=== PATIENT | male | born 1940 | race Hispanic/Latino ===

== ENCOUNTER 2021-09-14 17:32 | Emergency (ER) | payer SELFPAY ==
--- NOTE | 2021-09-14 17:55 | Emergency Department Report ---
<CHEYANNE GONSALEZ - Last Filed: 09/14/21 20:49> ED Shortness of Breath HPI - General Chief Complaint: Dyspnea/Respdistress Stated Complaint: SOB Time Seen by Provider: 09/14/21 17:46 Source: patient, EMS Mode of arrival: Stretcher Limitations: Language Barrier - History of Present Illness Initial Comments: 81 yo M with h/o schizophrenia and lung resection brought in by EMS with shortness of breath that started 3 to 4 days progressively getting worse. According to EMS patient and his brother while visiting [place] before symptoms started. Patient is unsure why his lung was resected. No fever or chills reported. Patient is headaches smoker. EMS reported that patient O2 sat while low 70s when he was picked up from the hotel. He was started on 4 L of O2 supplement with improvement to 93%. No other modifying or associated factors reported. - Related Data Home Medications Medication Instructions Recorded Confirmed Last Taken Citalopram [celeXA] 20 mg PO QDAY 09/14/21 09/14/21 09/13/21 OLANZapine [Olanzapine] 10 mg PO 09/14/21 09/13/21 hydrOXYzine PAMOATE [Vistaril] 25 mg PO Q6HR PRN 09/14/21 09/14/21 09/13/21 risperiDONE [RisperDAL] 1 mg PO 09/14/21 09/13/21 Allergies Allergy/AdvReac Type Severity Reaction Status Date / Time No Known Allergies Allergy Verified 09/14/21 17:34 ED Review of Systems Comment: All other systems reviewed and negative Respiratory: cough, shortness of breath, SOB with exertion, SOB at rest Cardiovascular: denies: chest pain, palpitations ED Past Medical Hx - Past Medical History Additional medical history: schizoprenia - Surgical History Past Surgical History?: Yes Additional Surgical History: Lung surgery? - Medications Home Medications: Home Medications Medication Instructions Recorded Confirmed Last Taken Type Citalopram [celeXA] 20 mg PO QDAY 09/14/21 09/14/21 09/13/21 History OLANZapine [Olanzapine] 10 mg PO 09/14/21 09/13/21 History hydrOXYzine PAMOATE [Vistaril] 25 mg PO Q6HR PRN 09/14/21 09/14/21 09/13/21 History risperiDONE [RisperDAL] 1 mg PO 09/14/21 09/13/21 History ED Physical Exam - General Limitations: Language Barrier General appearance: alert, in distress (Due to shortness of breath) - Head Head exam: Present: normal inspection - Eye Eye exam: Present: normal appearance Pupils: Present: normal accommodation - ENT ENT exam: Present: normal exam, normal orophraynx, mucous membranes moist - Neck Neck exam: Present: normal inspection, full ROM - Respiratory Respiratory exam: Present: other (Wet lungs) - Cardiovascular Cardiovascular Exam: Present: regular rate, normal rhythm, normal heart sounds - GI/Abdominal GI/Abdominal exam: Present: soft, normal bowel sounds. Absent: distended, tenderness - Extremities Exam Extremities exam: Present: normal inspection, normal capillary refill. Absent: tenderness, pedal edema - Back Exam Back exam: Absent: tenderness - Neurological Exam Neurological exam: Present: alert, oriented X3 - Psychiatric Psychiatric exam: Present: normal mood - Skin Skin exam: Present: warm, dry, normal color ED Course - Reevaluation(s) Reevaluation #1: 09/14/21 17:52 here with sob x the last 3-4 days-- noted with low O2 sat by EMS at 72% with improvement to 93% with 4 L supplement-- symptoms could be as result of 1--Pneumonia 2--PE 3--Vascular congestion/Pulmonary edema 4--CHF 5--COPD exacerbation 6--mild cardiac infarction 7--pneumothorax 8--pericarditis/pericardial effusion To rule out the above so we will go ahead and order chest x-ray, D-dimer, troponin, BNP, and EKG. We also check routine labs including CBC, CMP or UA for any other infectious process. Reevaluation #2: 09/14/21 19:10 CT scan of the chest she also groundglass opacity consistent with interstitial lung disease with bronchiectasis suspicious of infection or inflammatory disease that is likely chronic--ABG is ordered and pending at this point. Reevaluation #3: 09/14/21 20:41 Noted with elevated D-dimer at 878.68 couple with been tachycardic which is suspicious and concerning for pulmonary embolism considering that the patient came in with hypoxia--we will go ahead and order CT angio chest for further evaluation and treatment. Patient also noted with elevated BNP at 6840 and with troponin at 0.045-- this could be as result of PE with right sided heart strain-- will continue to monitor this patient progress. He is needing 10L oxygen supplement at this time to keep his saturation about 95%. 09/14/21 20:49 Pt signed out to Dr Ba while waiting for the above imaging for continuation of this patient care. ED Medical Decision Making - Lab Data Result diagrams: 09/14/21 18:38 09/14/21 18:38 Critical Care Time: Yes (120 minutes ) Critical care time in (mins) excluding proc time.: 120 Critical care attestation.: see progress noted for details Critical Care Time: 120 ED Disposition Clinical Impression: Acute respiratory failure with hypoxia, Suspected 2019-nCoV infection, Pulmonary infiltrate, SIRS (systemic inflammatory response syndrome) Disposition: ADMITTED INPATIENT Does the pt Need Aspirin: No Condition: Serious <DESMOND BA - Last Filed: 09/14/21 22:10> ED Review of Systems ROS: Stated complaint: SOB Other details as noted in HPI ED Course Vital Signs 09/14/21 09/14/21 09/14/21 17:34 17:54 18:00 Temperature 97.6 F Pulse Rate 130 H 124 H 120 H Respiratory 36 H 36 H Rate Blood Pressure 115/61 Blood Pressure 104/68 [Left] O2 Sat by Pulse 93 95 100 Oximetry 09/14/21 09/14/21 09/14/21 18:25 18:30 18:46 Temperature Pulse Rate 121 H 120 H Respiratory 42 H 30 H Rate Blood Pressure 115/61 124/58 114/71 Blood Pressure [Left] O2 Sat by Pulse 100 98 99 Oximetry 09/14/21 21:35 Temperature Pulse Rate Respiratory Rate Blood Pressure Blood Pressure [Left] O2 Sat by Pulse 98 Oximetry - Reevaluation(s) Reevaluation #4: 09/14/21 22:08 CTA chest shows no pulmonary embolism. Respiratory therapist has switched patient over to 5 L nasal cannula. CTA chest suggest pulmonary infiltrates and effusions. Appreciate that patient is ruling in for systemic inflammatory response syndrome, but does have some evidence of fluid overload, so we will administer Lasix, and withhold 30 cc/kg bolus of IV fluids. Start ceftriaxone, azithromycin, empiric steroids, place patient on isolation, obtain COVID swab. Patient appears awake, alert, and is not encephalopathic. Hospital physician, Dr. Estrada to admit to IMS Suspect that mildly elevated troponin is likely secondary to type II troponin leak ED Medical Decision Making - Lab Data Result diagrams: 09/14/21 18:38 09/14/21 18:38 Vital Signs 09/14/21 09/14/21 09/14/21 17:34 17:54 18:00 Temperature 97.6 F Pulse Rate 130 H 124 H 120 H Respiratory 36 H 36 H Rate Blood Pressure 115/61 Blood Pressure 104/68 [Left] O2 Sat by Pulse 93 95 100 Oximetry 09/14/21 09/14/21 09/14/21 18:25 18:30 18:46 Temperature Pulse Rate 121 H 120 H Respiratory 42 H 30 H Rate Blood Pressure 115/61 124/58 114/71 Blood Pressure [Left] O2 Sat by Pulse 100 98 99 Oximetry 09/14/21 21:35 Temperature Pulse Rate Respiratory Rate Blood Pressure Blood Pressure [Left] O2 Sat by Pulse 98 Oximetry Lab Results 09/14/21 09/14/21 09/14/21 Range/Units 18:38 18:38 18:38 WBC 12.8 H (4.5-11.0) K/mm3 RBC 4.37 (3.65-5.03) M/mm3 Hgb 11.4 L (11.8-15.2) gm/dl Hct 35.5 (35.5-45.6) % MCV 81 L (84-94) fl MCH 26 L (28-32) pg MCHC 32 (32-34) % RDW 14.4 (13.2-15.2) % Plt Count 425 (140-440) K/mm3 Lymph % (Auto) 2.5 L (13.4-35.0) % [place] % (Auto) 10.3 H (0.0-7.3) % Eos % (Auto) 0.2 (0.0-4.3) % Baso % (Auto) 0.2 (0.0-1.8) % Lymph # (Auto) 0.3 L (1.2-5.4) K/mm3 [place] # (Auto) 1.3 H (0.0-0.8) K/mm3 Eos # (Auto) 0.0 (0.0-0.4) K/mm3 Baso # (Auto) 0.0 (0.0-0.1) K/mm3 Seg Neutrophils % 86.8 H (40.0-70.0) % Seg Neutrophils # 11.1 H (1.8-7.7) K/mm3 PT (12.2-14.9) Sec. INR (0.87-1.13) APTT (24.2-36.6) Sec. D-Dimer (0-234) ng/mlDDU Sodium 140 (137-145) mmol/L Potassium 5.0 (3.6-5.0) mmol/L Chloride 102.1 (98-107) mmol/L Carbon Dioxide 24 (22-30) mmol/L Anion Gap 19 mmol/L BUN 18 (9-20) mg/dL Creatinine 1.0 (0.8-1.3) mg/dL Estimated GFR > 60 ml/min BUN/Creatinine Ratio 18 % Glucose 115 H (75-100) mg/dL Lactic Acid (0.7-2.0) mmol/L Calcium 8.2 L (8.4-10.2) mg/dL Total Bilirubin 0.40 (0.1-1.2) mg/dL AST 36 (5-40) units/L ALT 40 (7-56) units/L Alkaline Phosphatase 103 (35-129) units/L Troponin T 0.045 H (0.00-0.029) ng/mL NT-Pro-B Natriuret Pep 6840 H (0-900) pg/mL Total Protein 5.9 L (6.3-8.2) g/dL Albumin 2.9 L (3.9-5) g/dL Albumin/Globulin Ratio 1.0 % Triglycerides 77 (2-149) mg/dL Cholesterol 136 (50-199) mg/dL LDL Cholesterol Direct 83 (50-130) mg/dL HDL Cholesterol 39 L (40-59) mg/dL Cholesterol/HDL Ratio 3.48 % TSH 2.320 (0.270-4.200) mlU/mL 09/14/21 09/14/21 Range/Units 18:38 21:25 WBC (4.5-11.0) K/mm3 RBC (3.65-5.03) M/mm3 Hgb (11.8-15.2) gm/dl Hct (35.5-45.6) % MCV (84-94) fl MCH (28-32) pg MCHC (32-34) % RDW (13.2-15.2) % Plt Count (140-440) K/mm3 Lymph % (Auto) (13.4-35.0) % [place] % (Auto) (0.0-7.3) % Eos % (Auto) (0.0-4.3) % Baso % (Auto) (0.0-1.8) % Lymph # (Auto) (1.2-5.4) K/mm3 [place] # (Auto) (0.0-0.8) K/mm3 Eos # (Auto) (0.0-0.4) K/mm3 Baso # (Auto) (0.0-0.1) K/mm3 Seg Neutrophils % (40.0-70.0) % Seg Neutrophils # (1.8-7.7) K/mm3 PT 15.2 H (12.2-14.9) Sec. INR 1.08 (0.87-1.13) APTT 31.5 (24.2-36.6) Sec. D-Dimer 876.68 H (0-234) ng/mlDDU Sodium (137-145) mmol/L Potassium (3.6-5.0) mmol/L Chloride (98-107) mmol/L Carbon Dioxide (22-30) mmol/L Anion Gap mmol/L BUN (9-20) mg/dL Creatinine (0.8-1.3) mg/dL Estimated GFR ml/min BUN/Creatinine Ratio % Glucose (75-100) mg/dL Lactic Acid 1.30 (0.7-2.0) mmol/L Calcium (8.4-10.2) mg/dL Total Bilirubin (0.1-1.2) mg/dL AST (5-40) units/L ALT (7-56) units/L Alkaline Phosphatase (35-129) units/L Troponin T (0.00-0.029) ng/mL NT-Pro-B Natriuret Pep (0-900) pg/mL Total Protein (6.3-8.2) g/dL Albumin (3.9-5) g/dL Albumin/Globulin Ratio % Triglycerides (2-149) mg/dL Cholesterol (50-199) mg/dL LDL Cholesterol Direct (50-130) mg/dL HDL Cholesterol (40-59) mg/dL Cholesterol/HDL Ratio % TSH (0.270-4.200) mlU/mL - EKG Data -: EKG Interpreted by Vt EKG shows normal: sinus rhythm Rate: tachycardia - EKG Data 09/14/21 22:08 The EKG is interpreted by myself at 22: 08 Sinus rhythm, tachycardia, rate 123 bpm. Normal axis, normal P wave axis, multiple PVCs, poor R wave progression, QTC 4 5 8 ms. Abnormal EKG. Not a STEMI - Radiology Data Radiology results: pending, report reviewed, image reviewed CTA CHEST WITH CONTRAST INDICATION / CLINICAL INFORMATION: sob with elevated d- dimer and tachycardia. TECHNIQUE: Axial CT images were obtained through the chest after injection of IV contrast. 3 plane MIP and/or 3D reconstructions were produced. All CT scans at this location are performed using CT dose reduction for ALARA by means of automated exposure control. COMPARISON: None available. FINDINGS: There is extensive pulmonary opacities within bilateral lungs which limits evaluation. The central pulmonary arteries are patent without filling defect. The visualized portions of the segmental peripheral pulmonary arteries appear patent where visualized. There are bilateral pleural effusions. Groundglass opacities with diffuse infiltrates and densities in bilateral lungs. A few nodular densities are also seen. Small nodular density in the right lower lung measures 4 mm. Additional nodular densities are also seen. Calcified paratracheal hilar and periaortic nodes. Heart and aorta appear normal. IMPRESSION: 1. No central PTE is identified. Visualized segmental peripheral pulmonary arteries appear patent however examination is significantly limited due to amount of infiltrates in lung parenchymal changes bilaterally 2. Diffuse bilateral pulmonary opacities with groundglass densities and interstitial infiltrates. Several nodular opacities are also seen in bilateral lungs. Follow- up CT after treatment to exclude underlying pulmonary nodule. 3. Bilateral moderate to large effusions. 4. Enlarged calcified hilar and paratracheal nodes. Signer Name: Jose A Rob MD Signed: 09/14/2021 9:00 PM Workstation Name: [id number] CT chest wo con HISTORY: sob COMPARISON: None TECHNIQUE: Chest CT exam. All CT scans at this location are performed using CT dose reduction for ALARA by means of automated exposure control. FINDINGS: CT CHEST: Lungs: Large pleural effusions. There are bilateral groundglass opacities involving all lobes of lung. There appears to be an upper lobe predilection. No significant peribronchial thickening. There is no significant interlobular septal thickening.No honey combing. The upper lobe predominance can be seen with inflammation; however, there is no nodularity to suggest metabolic disease. Trachea and Bronchi: Mild bronchiectasis Mediastinum/Lymph nodes: Numerous calcified lymph nodes sequela of granulomatous disease. No lymphadenopathy. Heart: No significant abnormality. Vasculature: No significant abnormality. Osseous Structures: No aggressive appearing osseous lesions. Additional Findings: None IMPRESSION: 1. There is diffuse bilateral ground glass opacities with large bilateral pleural effusions. The airspace disease is not typical for alveolar edema. Findings could be related to infection or inflammation but given the bronchiectasis findings could be chronic and related to interstitial lung disease. Signer Name: Jerry Ruiz MD Signed: 09/14/2021 6:01 PM Workstation Name: [id number] Critical care attestation.: If time is entered above; I have spent that time in minutes in the direct care of this critically ill patient, excluding procedure time. ED Disposition Is pt being admited?: Yes Does the pt Need Aspirin: No
[2021-09-14] MEDS ORDERED: MORPHINE 2 MG/1 ML INJ IV ONE (17:58)
[2021-09-14 19:02] LABS: Basophils % (Auto) 0.2 % (0.0-1.8); Eosinophils % (Auto) 0.2 % (0.0-4.3); Hematocrit 35.5 % (35.5-45.6); Hemoglobin 11.4 gm/dl (11.8-15.2); Lymphocytes # (Auto) 0.3 K/mm3 (1.2-5.4); Lymphocytes % (Auto) 2.5 % (13.4-35.0); Mean Corpuscular HGB Conc 32 % (32-34); Mean Corpuscular Volume 81 fl (84-94); Monocytes # (Auto) 1.3 K/mm3 (0.0-0.8); Monocytes % (Auto) 10.3 % (0.0-7.3); Platelet Count 425 K/mm3 (140-440); Red Blood Count 4.37 M/mm3 (3.65-5.03); Red Cell Distribution Width 14.4 % (13.2-15.2)
--- NOTE | 2021-09-14 19:06 | Cat Scan Report ---
CT chest wo con HISTORY: sob COMPARISON: None TECHNIQUE: Chest CT exam. All CT scans at this location are performed using CT dose reduction for ALA RA by means of automated exposure control. FINDINGS: CT CHEST: Lungs: Large pleural effusions. There are bilateral groundglass opacities involving all lobes of lung . There appears to be an upper lobe predilection. No significant peribronchial thickening. There is n o significant interlobular septal thickening.No honey combing. The upper lobe predominance can be see n with inflammation; however, there is no nodularity to suggest metabolic disease. Trachea and Bronchi: Mild bronchiectasis Mediastinum/Lymph nodes: Numerous calcified lymph nodes sequela of granulomatous disease. No lymphade nopathy. Heart: No significant abnormality. Vasculature: No significant abnormality. Osseous Structures: No aggressive appearing osseous lesions. Additional Findings: None IMPRESSION: 1. There is diffuse bilateral ground glass opacities with large bilateral pleural effusions. The airs pace disease is not typical for alveolar edema. Findings could be related to infection or inflammatio n but given the bronchiectasis findings could be chronic and related to interstitial lung disease. Signer Name: Jerry Ruiz MD Signed: 09/14/2021 7:01 PM Workstation Name: [id number]
[2021-09-14 19:12] LABS: INR 1.08 (0.87-1.13)
[2021-09-14 19:13] LABS: Partial Thromboplastin Time 31.5 Sec. (24.2-36.6)
[2021-09-14 19:27] LABS: Alanine Aminotransferase 40 units/L (7-56); Albumin 2.9 g/dL (3.9-5); BUN/Creatinine Ratio 18; Blood Urea Nitrogen 18 mg/dL (9-20); Calcium 8.2 mg/dL (8.4-10.2); Hemolysis Index 0
[2021-09-14 19:53] LABS: Chol/HDL Ratio 3.48 %; HDL Cholesterol 39 mg/dL (40-59); LDL Cholesterol,Direct 83 mg/dL (50-130)
[2021-09-14] MEDS ORDERED: ENOXAPARIN 100 MG/1 ML INJ SUB-Q ONE (20:46)
[2021-09-14] MEDS ORDERED: AZITHROMYCIN/NS 500 MG/250 ML 500 MG/250 ML BAG IV ONE (21:05)
[2021-09-14] MEDS ORDERED: dexAMETHasone 4 MG/ML VIAL IV ONE ×2 (21:05→22:08)
[2021-09-14] MEDS ORDERED: cefTRIAXone/NS 1 GM/50 ML 1 GM/50 ML BAG IV ONE (21:05)
[2021-09-14] MEDS ORDERED: FUROSEMIDE 40 MG/4 ML INJ IV ONE (21:05)
[2021-09-14] MEDS ORDERED: LIDOCAINE-MPF (1%) 10 MG/1 ML VIAL 5 ML INFILTRATI ONE (21:05)
--- NOTE | 2021-09-14 22:04 | Cat Scan Report ---
CTA CHEST WITH CONTRAST INDICATION / CLINICAL INFORMATION: sob with elevated d-dimer and tachycardia. TECHNIQUE: Axial CT images were obtained through the chest after injection of IV contrast. 3 plane DC P and/or 3D reconstructions were produced. All CT scans at this location are performed using CT dose reduction for ALARA by means of automated exposure control. COMPARISON: None available. FINDINGS: There is extensive pulmonary opacities within bilateral lungs which limits evaluation. The central pu lmonary arteries are patent without filling defect. The visualized portions of the segmental peripher al pulmonary arteries appear patent where visualized. There are bilateral pleural effusions. Groundgl ass opacities with diffuse infiltrates and densities in bilateral lungs. A few nodular densities are also seen. Small nodular density in the right lower lung measures 4 mm. Additional nodular densities are also seen. Calcified paratracheal hilar and periaortic nodes. Heart and aorta appear normal. IMPRESSION: 1. No central PTE is identified. Visualized segmental peripheral pulmonary arteries appear patent how ever examination is significantly limited due to amount of infiltrates in lung parenchymal changes bi laterally 2. Diffuse bilateral pulmonary opacities with groundglass densities and interstitial infiltrates. Sev eral nodular opacities are also seen in bilateral lungs. Follow-up CT after treatment to exclude unde rlying pulmonary nodule. 3. Bilateral moderate to large effusions. 4. Enlarged calcified hilar and paratracheal nodes. Signer Name: Jose A Rob MD Signed: 09/14/2021 10:00 PM Workstation Name: [id number]
[2021-09-14] MEDS ORDERED: ALBUTEROL 2.5 MG/3 ML NEBU IH PRN (22:23)
[2021-09-14] MEDS ORDERED: ACETAMINOPHEN 325 MG TAB PO PRN (22:23)
[2021-09-14] MEDS ORDERED: HYDROmorphone 1 MG/1 ML INJ IV PRN (22:23)
[2021-09-14] MEDS ORDERED: MORPHINE 2 MG/1 ML INJ IV PRN (22:23)
[2021-09-14] MEDS ORDERED: ONDANSETRON 4 MG/2 ML INJ IV PRN (22:23)
--- NOTE | 2021-09-14 22:38 | History and Physical Report ---
History of Present Illness Date of examination: 09/14/21 Date of admission: 09/14/21 Chief complaint: Dyspnea Respiratory distress History of present illness: 81 yo M with history of schizophrenia and lung resection was brought to the emergency room because of shortness of breath that started 3 to 4 days progressively getting worse. patient and his brother while visiting [place] before symptoms started. Patient is unsure why his lung was resected. No fever or chills reported. Patient is smoker. EMS reported that patient O2 sat while low 70s when he was picked up from the hotel. He was started on 4 L of O2 supplement with improvement to 93%. No other modifying or associated factors reported. In the emergency room Patient also noted with elevated BNP at 6840 and with troponin at 0.045. CT scan of the chest she also groundglass opacity consistent with interstitial lung disease with bronchiectasis suspicious of infection or inflammatory disease that is likely chronic. CTA of the chest shows no PE. Diffuse bilateral pulmonary opacities with groundglass densities and interstitial infiltrates. Bilateral moderate to large effusion. Enlarged ca lcified hilar and paratracheal nodes.'s were going to admit the patient we will put the patient on IV antibiotic neb treatment, consult pulmonary also put on heart failure pathway. Past History Past Medical History: other (Schizophrenia) Past Surgical History: Other (Lung resection) Social history: smoking Family history: hypertension Medications and Allergies Allergies Allergy/AdvReac Type Severity Reaction Status Date / Time No Known Allergies Allergy Verified 09/14/21 17:34 Home Medications Medication Instructions Recorded Confirmed Last Taken Type Citalopram [celeXA] 20 mg PO QDAY 09/14/21 09/14/21 09/13/21 History OLANZapine [Olanzapine] 10 mg PO 09/14/21 09/13/21 History hydrOXYzine PAMOATE [Vistaril] 25 mg PO Q6HR PRN 09/14/21 09/14/21 09/13/21 History risperiDONE [RisperDAL] 1 mg PO 09/14/21 09/13/21 History Active Meds: Active Medications Acetaminophen (Acetaminophen 325 Mg Tab) 650 mg PO Q4H PRN PRN Reason: Pain MILD(1-3)/Fever >100.5/NOONAN Albuterol (Albuterol 2.5 Mg/3 Ml Nebu) 2.5 mg IH Q3HRT PRN PRN Reason: Shortness Of Breath Albuterol/Ipratropium (Ipratropium/Albuterol Sulfate 3 Ml Ampul.Neb) 1 ampul IH Q6HRT [facility] Azithromycin (Azithromycin 250 Mg Tab) 500 mg PO QDAY [facility]; Protocol Citalopram Hydrobromide (Citalopram 20 Mg Tab) 20 mg PO QDAY [facility] Famotidine (Famotidine 20 Mg Tab) 20 mg PO BID [facility] Furosemide (Furosemide 40 Mg/4 Ml Inj) 40 mg IV BID@0600,1800 [facility] Heparin Sodium (Porcine) (Heparin 5,000 Unit/1 Ml Vial) 5,000 unit SUB-Q Q12HR [facility] Hydromorphone HCl (Hydromorphone 1 Mg/1 Ml Inj) 0.5 mg IV Q3H PRN PRN Reason: Pain , Severe (7-10) Ceftriaxone Sodium (Rocephin/Ns 2 Gm/100 Ml) 2 gm in 100 mls @ 200 mls/hr IV Q24H REX; Protocol Morphine Sulfate (Morphine 2 Mg/1 Ml Inj) 2 mg IV Q4H PRN PRN Reason: Pain, Moderate (4-6) Olanzapine (Olanzapine 10 Mg Tab) 10 mg PO DAILY [facility] Ondansetron HCl (Ondansetron 4 Mg/2 Ml Inj) 4 mg IV Q8H PRN PRN Reason: Nausea And Vomiting Risperidone (Risperidone 1 Mg Tab) 1 mg PO DAILY [facility] Sodium Chloride (Sodium Chloride 0.9% 10 Ml Flush Syringe) 10 ml IV BID [facility] Sodium Chloride (Sodium Chloride 0.9% 10 Ml Flush Syringe) 10 ml IV PRN PRN PRN Reason: LINE FLUSH Review of Systems All systems: negative Cardiovascular: orthopnea, edema, shortness of breath, dyspnea on exertion Respiratory: shortness of breath, dyspnea on exertion Exam - Constitutional Vitals: Temp Pulse Resp BP Pulse Ox 97.6 F 120 H 30 H 114/71 98 09/14/21 18:00 09/14/21 18:46 09/14/21 18:46 09/14/21 18:46 09/14/21 21:35 General appearance: Present: no acute distress, well-nourished - EENT Eyes: Present: PERRL ENT: hearing intact, clear oral mucosa - Neck Neck: Present: supple, normal ROM - Respiratory Respiratory effort: normal Respiratory: bilateral: diminished - Cardiovascular Heart Sounds: Present: S1 & S2. Absent: rub, click - Extremities Extremities: pulses symmetrical Extremity abnormal: edema Peripheral Pulses: within normal limits - Abdominal General gastrointestinal: Present: soft, non-tender, non-distended, normal bowel sounds Male genitourinary: Present: normal - Integumentary Integumentary: Present: clear, warm, dry - Musculoskeletal Musculoskeletal: gait normal, strength equal bilaterally - Psychiatric Psychiatric: appropriate mood/affect, intact judgment & insight - Neurologic Neurologic: CNII-XII intact, moves all extremities HEART Score - HEART Score Troponin: Troponin T 0.045 ng/mL (0.00-0.029) H 09/14/21 18:38 Results - Labs CBC & Chem 7: 09/14/21 18:38 09/14/21 18:38 Labs: Laboratory Last Values WBC 12.8 K/mm3 (4.5-11.0) H 09/14/21 18:38 RBC 4.37 M/mm3 (3.65-5.03) 09/14/21 18:38 Hgb 11.4 gm/dl (11.8-15.2) L 09/14/21 18:38 Hct 35.5 % (35.5-45.6) 09/14/21 18:38 MCV 81 fl (84-94) L 09/14/21 18:38 MCH 26 pg (28-32) L 09/14/21 18:38 MCHC 32 % (32-34) 09/14/21 18:38 RDW 14.4 % (13.2-15.2) 09/14/21 18:38 Plt Count 425 K/mm3 (140-440) 09/14/21 18:38 Lymph % (Auto) 2.5 % (13.4-35.0) L 09/14/21 18:38 [place] % (Auto) 10.3 % (0.0-7.3) H 09/14/21 18:38 Eos % (Auto) 0.2 % (0.0-4.3) 09/14/21 18:38 Baso % (Auto) 0.2 % (0.0-1.8) 09/14/21 18:38 Lymph # (Auto) 0.3 K/mm3 (1.2-5.4) L 09/14/21 18:38 [place] # (Auto) 1.3 K/mm3 (0.0-0.8) H 09/14/21 18:38 Eos # (Auto) 0.0 K/mm3 (0.0-0.4) 09/14/21 18:38 Baso # (Auto) 0.0 K/mm3 (0.0-0.1) 09/14/21 18:38 Seg Neutrophils % 86.8 % (40.0-70.0) H 09/14/21 18:38 Seg Neutrophils # 11.1 K/mm3 (1.8-7.7) H 09/14/21 18:38 PT 15.2 Sec. (12.2-14.9) H 09/14/21 18:38 INR 1.08 (0.87-1.13) 09/14/21 18:38 APTT 31.5 Sec. (24.2-36.6) 09/14/21 18:38 D-Dimer 876.68 ng/mlDDU (0-234) H 09/14/21 18:38 ABG pH 7.409 (7.320-7.450) 09/14/21 22:02 POC ABG pCO2 34.8 mmHg (32.0-48.0) 09/14/21 22:02 POC ABG pO2 43.7 mmHg (83-108) L 09/14/21 22:02 POC ABG HCO3 21.5 09/14/21 22:02 ABG O2 Saturation 79.8 (0-100) 09/14/21 22:02 POC ABG Base Excess -2.6 09/14/21 22:02 ABG Hemoglobin 10.9 (12.0-17.5) L 09/14/21 22:02 ABG Oxyhemoglobin 78.0 (94-98) L 09/14/21 22:02 ABG Methemoglobin 0.2 (0.0-1.5) 09/14/21 22:02 ABG Sodium Not Reportable 09/14/21 22:02 ABG Potassium Not Reportable 09/14/21 22:02 ABG Chloride Not Reportable 09/14/21 22:02 ABG Glucose Not Reportable 09/14/21 22:02 Carboxyhemoglobin 2.0 (0.5-1.5) H 09/14/21 22:02 FiO2 % 21.0 09/14/21 22:02 Sodium 140 mmol/L (137-145) 09/14/21 18:38 Potassium 5.0 mmol/L (3.6-5.0) 09/14/21 18:38 Chloride 102.1 mmol/L (98-107) 09/14/21 18:38 Carbon Dioxide 24 mmol/L (22-30) 09/14/21 18:38 Anion Gap 19 mmol/L 09/14/21 18:38 BUN 18 mg/dL (9-20) 09/14/21 18:38 Creatinine 1.0 mg/dL (0.8-1.3) 09/14/21 18:38 Estimated GFR > 60 ml/min 09/14/21 18:38 BUN/Creatinine Ratio 18 % 09/14/21 18:38 Glucose 115 mg/dL (75-100) H 09/14/21 18:38 Lactic Acid 1.30 mmol/L (0.7-2.0) 09/14/21 21:25 Calcium 8.2 mg/dL (8.4-10.2) L 09/14/21 18:38 Total Bilirubin 0.40 mg/dL (0.1-1.2) 09/14/21 18:38 AST 36 units/L (5-40) 09/14/21 18:38 ALT 40 units/L (7-56) 09/14/21 18:38 Alkaline Phosphatase 103 units/L (35-129) 09/14/21 18:38 Troponin T 0.045 ng/mL (0.00-0.029) H 09/14/21 18:38 NT-Pro-B Natriuret Pep 6840 pg/mL (0-900) H 09/14/21 18:38 Total Protein 5.9 g/dL (6.3-8.2) L 09/14/21 18:38 Albumin 2.9 g/dL (3.9-5) L 09/14/21 18:38 Albumin/Globulin Ratio 1.0 % 09/14/21 18:38 Triglycerides 77 mg/dL (2-149) 09/14/21 18:38 Cholesterol 136 mg/dL (50-199) 09/14/21 18:38 LDL Cholesterol Direct 83 mg/dL (50-130) 09/14/21 18:38 HDL Cholesterol 39 mg/dL (40-59) L 09/14/21 18:38 Cholesterol/HDL Ratio 3.48 % 09/14/21 18:38 TSH 2.320 mlU/mL (0.270-4.200) 09/14/21 18:38 Arterial Blood Glucose Not Reportable 09/14/21 22:02 - Imaging and Cardiology CT scan - chest: report reviewed Assessment and Plan VTE prophylaxis?: Chemical Plan of care discussed with patient/family: Yes - Patient Problems (1) Acute respiratory failure with hypoxia Status: Acute Plan to address problem: Admit the patient to the IMCU overnight. Oxygen via nasal cannula 3 L/min. DuoNeb and nebulizer every 4 hours. Albuterol via nebulizer every 4 hours as needed. Dexamethasone 6 mg IV daily. Pulmonary consult (2) CHF exacerbation Status: Acute Plan to address problem: Maintain input output. Fluid restriction. Echocardiogram. Lasix 40 mg IV daily (3) Pulmonary infiltrate Status: Acute Plan to address problem: Rocephin 2 g IV daily. Zithromax 500 mg IV daily. We do the blood culture and sputum culture. Pulmonary consult (4) Schizophrenia Status: Acute Plan to address problem: Is stable. We continue the home medication (5) SIRS (systemic inflammatory response syndrome) Status: Acute Plan to address problem: Oxygen via nasal cannula 3 L/min. DuoNeb and nebulizer every 4 hours. Albuterol via nebulizer every 4 hours as needed. Rocephin 2 g IV daily. Zithromax 500 mg IV p.o. daily dexamethasone 6 mg IV daily. Pulmonary consult. We will send the COVID PCR. COVID isolation. Follow COVID inflammatory marker (6) Suspected 2019-nCoV infection Status: Acute Plan to address problem: Oxygen via nasal cannula 3 L/min. DuoNeb and nebulizer every 4 hours. Albuterol via nebulizer every 4 hours as needed. Rocephin 2 g IV daily. Zithromax 500 mg IV p.o. daily dexamethasone 6 mg IV daily. Pulmonary consult. We will send the COVID PCR. COVID isolation. Follow COVID inflammatory marker (7) DVT prophylaxis Status: Acute Plan to address problem: Heparin 5000 units subcu every 12 hours for DVT prophylaxis. Pepcid 20 mg p.o. twice daily for GI prophylaxis. Patient is a full code
[2021-09-14] MEDS ORDERED: cefTRIAXone/NS 2 GM/100 ML 2 GM/100 ML BAG IV SCH (23:00)
[2021-09-15] MEDS ORDERED: IPRATROPIUM/ALBUTEROL SULFATE 3 ML AMPUL.NEB IH SCH (02:00)
[2021-09-15 02:50] VITALS: BP 116/78
[2021-09-15] MEDS ORDERED: FUROSEMIDE 40 MG/4 ML INJ IV SCH (06:00)
[2021-09-15] MEDS ORDERED: risperiDONE 1 MG TAB PO SCH (10:00)
[2021-09-15] MEDS ORDERED: FAMOTIDINE 20 MG TAB PO SCH (10:00)
[2021-09-15] MEDS ORDERED: AZITHROMYCIN 250 MG TAB PO SCH (10:00)
[2021-09-15] MEDS ORDERED: CITALOPRAM 20 MG TAB PO SCH (10:00)
[2021-09-15] MEDS ORDERED: HEPARIN 5,000 UNIT/1 ML VIAL SUB-Q SCH (10:00)
[2021-09-15] MEDS ORDERED: dexAMETHasone 4 MG/ML VIAL IV SCH (10:00)
--- NOTE | 2021-09-15 11:22 | Electrocardiograph Report ---
[facility] Test Date: 2021-09-14 Test Time: 17:53:16 Pat Name: DORYS SPENCER Department: Room: Gender: M Swift Tender: [place] : 1940 Requested By: CHEYANNE GONSALEZ Order Number: [id number] Reading MD: Paul Valentine Measurements Intervals [place] Rate: 123 P: 15 DE: 163 QRS: 16 QRSD: 90 T: 9 QT: 320 QTc: 458 Interpretive Statements Sinus tachycardia Paired ventricular premature complexes nonspecific st-t No previous ECG available for comparison Electronically Signed On 09-15-2021 11:22:34 EDT by Paul Valentine
== END 2021-09-15 02:30 | disposition left against medical advice (07) ==
LOC: ED 17:32 → IMCU 09-15 00:47 → UNDOADMIN 09-15 00:47
DX: J96.01 Acute respiratory failure with hypoxia (principal); R91.8 Other nonspecific abnormal finding of lung field; Z20.822 Contact with and (suspected) exposure to COVID-19; R65.10 Systemic inflammatory response syndrome (SIRS) of non-infectious origin without acute organ dysfunction; F20.9 Schizophrenia, unspecified; Z79.899 Other long term (current) drug therapy
CPT/HCPCS: 36415; 71250; 71275; 80053; 80061; 82140; 82805; 83880; 84443; 84484; 85025; 85379; 85610; 85730; 87040; 93005; 96365; 96366; 96368; 96372; 96375; 99291; 99292; J0456; J0696; J1100; J1650; J1940; J2270; Q9967; 96376; 99285